=== PATIENT | female | born 1990 | race Caucasian/White ===

== ENCOUNTER 2017-10-03 07:00 | Inpatient (IN) | payer BC ==
[2017-10-03] MEDS ORDERED: Ondansetron 4 MG/2 ML SDV IVPUSH PRN ×2 (07:24→08:43)
[2017-10-03] MEDS ORDERED: Sodium Chloride 0.9% 10 ML Syringe FLUSH PRN (07:24)
[2017-10-03] MEDS ORDERED: Nalbuphine 20 MG/1 ML Amp IVPUSH PRN (07:24)
[2017-10-03] MEDS ORDERED: Oxytocin/Lactated Ringers 10 UNIT/1,000 ML BAG IV SCH (07:30)
--- NOTE | 2017-10-03 07:30 | PCM.LDHP ---
L&D History of Present Illness - General Date of Service: 10/03/17 Admit Problem/Dx: Patient Status Order with Admit Dx/Problem 10/03/17 07:24 Patient Status [ADT] Routine Admission Diagnosis/Problem Admission Diagnosis/Problem Normal Source of Information: Patient History Limitations: Reports: No Limitations - History of Present Illness Introduction:: Patient is a 27 y/o at 40 5/7 wks who presents for IOL for dates - Related Data Allergies/Adverse Reactions: Allergies Allergy/AdvReac Type Severity Reaction Status Date / Time No Known Allergies Allergy Verified 12/30/14 18:09 Home Medications: Home Meds Vit 90/Iron Fum/Folic [ Formula] 1 tab .ROUTE DAILY 12/30/14 [ History] Acetaminophen [Tylenol] 650 mg PO Q6H PRN #50 tablet 01/02/15 [Rx] Benzocaine/Menthol [Dermoplast Pain Relief [place]] 1 spray TOP ASDIRECTED PRN #1 canister 01/02/15 [Rx] Docusate Sodium [Colace] 100 mg PO BID PRN #50 cap 01/02/15 [Rx] Ibuprofen [Motrin] 200 - 800 mg PO Q6H PRN #50 tablet 01/02/15 [Rx] Lanolin [Lansinoh HPA] 1 applic TOP ASDIRECTED PRN #1 crm 01/02/15 [Rx] Simethicone 80 mg PO Q4H PRN #50 tab.chew 01/02/15 [Rx] Witch Randi [Tucks] 1 pad TOP ASDIRECTED PRN #50 pad 01/02/15 [Rx] Past Medical History - Past Health History Medical/Surgical History: Denies 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: 1 LMP (Approximate): Social & Family History - Tobacco Use Smoking Status *Q: Former Smoker Second Hand Smoke Exposure: No - Alcohol Use Alcohol Use History: No - Recreational Drug Use Recreational Drug Use: No H&P Review of Systems - Review of Systems: Review Of Systems: See Below General: Reports: No Symptoms Pulmonary: Reports: No Symptoms Cardiovascular: Reports: No Symptoms Gastrointestinal: Reports: No Symptoms Genitourinary: Reports: No Symptoms Musculoskeletal: Reports: No Symptoms Neurological: Reports: No Symptoms L&D Exam - Exam Exam: See Below - OB Specific Contraction Intensity: Irritability Movement: Active Heart Tones: Present Heart Tones per Min: 135 Heart Rate (FHR) Variability: Moderate (6-25 bmp) Presentation: Vertex - Dale Score Dale Score Cervix Position: Midposition Dale Score Consistency: Soft Dale Score Effacement: 51-70% Dale Score Dilation: 3-4 cm Dale Score 's Station: -2 Dale Score Total: 8 - Exam General: Alert, Oriented, Cooperative Lungs: Clear to Auscultation, Normal Respiratory Effort Cardiovascular: Regular Rate, Regular Rhythm GI/Abdominal Exam: Soft, Non-Tender Genitourinary: Normal external exam Extremities: Normal Inspection Skin: Warm, Dry, Intact - Patient Data Result Diagrams: 10/03/17 07:30 - Problem List (1) Post term over 40 weeks SNOMED Code(s): 953847163 ICD Code: O48.0 - POST-TERM Status: Acute Current Visit: Yes Problem List Initiated/Reviewed/Updated: Yes Orders Last 24hrs: Active Orders 24 hr Category Date Time Status Patient Status [ADT] Routine ADT 10/03/17 07:24 Ordered Activity as Tolerated [RC] PFP Care 10/03/17 07:24 Ordered Communication Order [RC] ASDIRECTED Care 10/03/17 07:24 Ordered Heart Tones [RC] ASDIRECTED Care 10/03/17 07:24 Ordered Notify Provider [RC] PFP Care 10/03/17 07:24 Ordered Notify Provider [RC] PRN Care 10/03/17 07:24 Ordered Peripheral IV Care [RC] . DIRECTED Care 10/03/17 07:24 Ordered Vital Signs [RC] PER UNIT ROUTINE Care 10/03/17 07:24 Ordered Regular Diet [DIET] Diet 10/03/17 Breakfast Ordered CBC W/O DIFF,HEMOGRAM [HEME] Routine Lab 10/03/17 07:24 Ordered TYPE AND SCREEN [BBK] Routine Lab 10/03/17 07:24 Ordered Lactated Ringers [Ringers, Lactated] 1,000 ml Med 10/03/17 07:30 Ordered IV ASDIRECTED Nalbuphine [Nubain] Med 10/03/17 07:24 Ordered 10 mg IVPUSH Q2H PRN Ondansetron [Zofran] Med 04/21/18 07:24 Ordered 4 mg IVPUSH Q4H PRN Oxytocin/Lactated Ringers [Pitocin in LR 10 Units/1,000 Med 10/03/17 07:30 Ordered ML] 10 unit in 1,000 ml IV .CONTINUOUS Sodium Chloride 0.9% [Saline Flush] Med 10/03/17 07:24 Ordered 10 ml FLUSH ASDIRECTED PRN Electronic Heart Tones Ext w TOCO [WOMSER] Oth 10/03/17 07:24 Ordered Routine Electronic Heart Tones Internal [WOMSER] Per Unit Ot 10/03/17 07:24 Ordered Routine Peripheral IV Insertion Adult [OM.PC] Routine Oth 10/03/17 07:24 Ordered Resuscitation Status Routine Resus Stat 10/03/17 07:24 Ordered Medication Orders Lactated Ringer's (Ringers, Lactated) 1,000 mls @ 100 mls/hr IV ASDIRECTED MAIA Oxytocin/Lactated Ringer's (Pitocin In Lr 10 Units/1,000 Ml) 10 unit in 1,000 mls @ 500 mls/hr IV .CONTINUOUS MAIA Nalbuphine HCl (Nubain) 10 mg IVPUSH Q2H PRN PRN Reason: Pain (moderate 4-6) Ondansetron HCl (Zofran) 4 mg IVPUSH Q4H PRN PRN Reason: Nausea/Vomiting Sodium Chloride (Saline Flush) 10 ml FLUSH ASDIRECTED PRN PRN Reason: Keep Vein Open Assessment/Plan Comment:: 27 y/o at 40 5/7 wks presents for IOL for dates * CBC and T&S * GBS negative, no need for antibiotics * Pain management per patient preference * Anticipate
[2017-10-03] MEDS ORDERED: ePHEDrine 50 MG/ML SDV IVPUSH PRN (08:43)
[2017-10-03] MEDS ORDERED: diphenhydrAMINE 50 MG/ML SDV IVPUSH PRN (08:43)
[2017-10-03] MEDS ORDERED: fentaNYL 100 MCG/2 ML SDV EPIDUR PRN (08:43)
[2017-10-03] MEDS ORDERED: Bupivacaine/fentaNYL/NS 100 ML Bag EPIDUR SCH (08:45)
[2017-10-03] MEDS: Lactated Ringers 1,000 ML IV SCH ×2 (08:55→10:00)
[2017-10-03] MEDS ORDERED: Bupivacaine 0.25% 10 ML SDV ONE (09:00)
--- NOTE | 2017-10-03 09:54 | PCM.PREANE ---
Preanesthetic Assessment - Anesthesia/Transfusion/Family Hx Anesthesia History: Prior Anesthesia Without Reaction Family History of Anesthesia Reaction: No Transfusion History: No Prior Transfusion(s) - Review of Systems General: No Symptoms Pulmonary: No Symptoms Cardiovascular: No Symptoms Gastrointestinal: No Symptoms Neurological: No Symptoms Other: Reports: None - Physical Assessment Pulse: 31 O2 Sat by Pulse Oximetry: 85 Respiratory Rate: 16 Blood Pressure: 132/79 Vital Signs: Last Vital Signs Temp 37.2 C 10/03/17 08:43 Pulse 102 H 10/03/17 08:43 Resp 16 10/03/17 08:43 BP 132/79 10/03/17 07:21 Pulse Ox 85 L 10/03/17 07:21 Height: 1.63 m Weight: 83.28 kg ASA Class: 2 Mental Status: Alert & Oriented x3 Airway Class: Mallampati = 1 Dentition: Reports: Normal Dentition Thyro-Mental Finger Breadths: 3 Mouth Opening Finger Breadths: 3 ROM/Head Extension: Full Lungs: Clear to Auscultation, Normal Respiratory Effort Cardiovascular: Regular Rate, Regular Rhythm - Lab Values: Laboratory Last Values WBC 13.01 K/mm3 (3.98-10.04) H 10/03/17 07:30 RBC 3.90 M/mm3 (3.98-5.22) L 10/03/17 07:30 Hgb 10.1 gm/L (11.2-15.7) L 10/03/17 07:30 Hct 32.5 % (34.1-44.9) L 10/03/17 07:30 MCV 83.3 fl (79.4-94.8) 10/03/17 07:30 MCH 25.9 pg (25.6-32.2) 10/03/17 07:30 MCHC 31.1 g/dl (32.2-35.5) L 10/03/17 07:30 RDW Std Deviation 41.5 fL (36.4-46.3) 10/03/17 07:30 Plt Count 213 K/mm3 (182-369) 10/03/17 07:30 MPV 13.1 fl (9.4-12.3) H 10/03/17 07:30 Blood Type A POSITIVE 10/03/17 07:30 Gel Antibody Screen Negative 10/03/17 07:30 - Allergies Allergies/Adverse Reactions: Allergies Allergy/AdvReac Type Severity Reaction Status Date / Time No Known Allergies Allergy Verified 12/30/14 18:09 - Acknowledgements Anesthesia Type Planned: Epidural Pt an Appropriate Candidate for the Planned Anesthesia: Yes Alternatives and Risks of Anesthesia Discussed w Pt/Guardian: Yes Pt/Guardian Understands and Agrees with Anesthesia Plan: Yes PreAnesthesia Questionnaire - Past Health History Medical/Surgical History: Denies Medical/Surgical History 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 Dermatologic History: pups syndrome during - SUBSTANCE USE Smoking Status *Q: Former Smoker Tobacco Use Within Last Twelve Months: No Second Hand Smoke Exposure: No Recreational Drug Use History: No - HOME MEDS Home Medications: Home Meds Vit 90/Iron Fum/Folic [ Formula] 1 tab .ROUTE DAILY 12/30/14 [ History] Acetaminophen [Tylenol] 650 mg PO Q6H PRN #50 tablet 01/02/15 [Rx] Benzocaine/Menthol [Dermoplast Pain Relief [place]] 1 spray TOP ASDIRECTED PRN #1 canister 01/02/15 [Rx] Docusate Sodium [Colace] 100 mg PO BID PRN #50 cap 01/02/15 [Rx] Ibuprofen [Motrin] 200 - 800 mg PO Q6H PRN #50 tablet 01/02/15 [Rx] Lanolin [Lansinoh HPA] 1 applic TOP ASDIRECTED PRN #1 crm 01/02/15 [Rx] Simethicone 80 mg PO Q4H PRN #50 tab.chew 01/02/15 [Rx] Witch Randi [Tucks] 1 pad TOP ASDIRECTED PRN #50 pad 01/02/15 [Rx] - CURRENT (IN HOUSE) MEDS Current Meds: Current Medications Diphenhydramine HCl (Benadryl) 25 mg IVPUSH Q6H PRN PRN Reason: Pruritis Ephedrine Sulfate (Ephedrine Sulfate) 5 mg IVPUSH ASDIRECTED PRN PRN Reason: Hypotension Fentanyl (Sublimaze) 100 mcg EPIDUR ONETIME PRN PRN Reason: Pain Fentanyl/Bupivacaine HCl (Fentanyl/Bupivacaine/Ns 2 Mcg-0.125% 100 Ml) 100 ml EPIDUR ASDIRECTED MAIA Lactated Ringer's (Ringers, Lactated) 1,000 mls @ 100 mls/hr IV ASDIRECTED MAIA Last Admin: 10/03/17 08:55 Dose: 100 mls/hr Oxytocin/Lactated Ringer's (Pitocin In Lr 10 Units/1,000 Ml) 10 unit in 1,000 mls @ 500 mls/hr IV .CONTINUOUS MAIA Nalbuphine HCl (Nubain) 10 mg IVPUSH Q2H PRN PRN Reason: Pain (moderate 4-6) Ondansetron HCl (Zofran) 4 mg IVPUSH Q4H PRN PRN Reason: Nausea/Vomiting Ondansetron HCl (Zofran) 4 mg IVPUSH ONETIME PRN PRN Reason: Nausea/Vomiting Sodium Chloride (Saline Flush) 10 ml FLUSH ASDIRECTED PRN PRN Reason: Keep Vein Open
--- NOTE | 2017-10-03 10:50 | PCM.DEL ---
L & D Note - General Info Date of Service: 10/03/17 - Delivery Note Labor: Induced by ARM Delivery Outcome: Livebirth Infant Delivery Method: Spontaneous Vaginal Delivery-Single Infant Delivery Mode: Spontaneous Presentation: Right Occiput Anterior (SHAYAN) Nuchal Cord: Present, Reduced Anesthesia Type: Epidural Amniotic Fluid Description: Clear Episiotomy Type: None Laceration: 1st Degree Suture type: Vicryl Suture size: 2-0 Placenta: Intact, Spontaneous Cord: 3 Vessels Estimated Blood Loss: 250 Resuscitation Needed: Yes : Bulb Syringe, Stimulated, Warmed, [place] Used Delivery Comments (Free Text/Narrative):: Patient found to be complete and began pushing. With maternal pushing effort head delivered from SHAYAN presentation. Tight nuchal cord present. Once this was able to be reduced the shoulders/body did deliver with gentle downward traction. Infant placed on maternal abdomen. Cord clamped and cut. Cord blood obtained. Placenta allowed time to separate and expelled intact. Inspection of perineum showed a 1st degree laceration which was slightly bleeding. This was repaired with a single interrupted suture of 2-0 vicryl placed in a figure of eight fashion - Patient Data Vitals - Most Recent: Last Vital Signs Temp 37.2 C 10/03/17 08:43 Pulse 31 L 10/03/17 09:54 Resp 16 10/03/17 09:54 BP 132/79 10/03/17 09:54 Pulse Ox 85 L 10/03/17 09:54 Weight - Most Recent: 83.28 kg Lab Results Last 24 Hours: Laboratory Results - last 24 hr 10/03/17 10/03/17 Range/Units 07:30 07:30 WBC 13.01 H (3.98-10.04) K/mm3 RBC 3.90 L (3.98-5.22) M/mm3 Hgb 10.1 L (11.2-15.7) gm/L Hct 32.5 L (34.1-44.9) % MCV 83.3 (79.4-94.8) fl MCH 25.9 (25.6-32.2) pg MCHC 31.1 L (32.2-35.5) g/dl RDW Std Deviation 41.5 (36.4-46.3) fL Plt Count 213 (182-369) K/mm3 MPV 13.1 H (9.4-12.3) fl Blood Type A POSITIVE Gel Antibody Screen Negative Med Orders - Current: Current Medications Diphenhydramine HCl (Benadryl) 25 mg IVPUSH Q6H PRN PRN Reason: Pruritis Ephedrine Sulfate (Ephedrine Sulfate) 5 mg IVPUSH ASDIRECTED PRN PRN Reason: Hypotension Fentanyl (Sublimaze) 100 mcg EPIDUR ONETIME PRN PRN Reason: Pain Last Admin: 10/03/17 09:57 Dose: 100 mcg Fentanyl/Bupivacaine HCl (Fentanyl/Bupivacaine/Ns 2 Mcg-0.125% 100 Ml) 100 ml EPIDUR ASDIRECTED MAIA Last Admin: 10/03/17 09:57 Dose: 100 ml Lactated Ringer's (Ringers, Lactated) 1,000 mls @ 100 mls/hr IV ASDIRECTED MAIA Last Admin: 10/03/17 10:00 Dose: 500 mls/hr Oxytocin/Lactated Ringer's (Pitocin In Lr 10 Units/1,000 Ml) 10 unit in 1,000 mls @ 500 mls/hr IV .CONTINUOUS MAIA Last Admin: 10/03/17 10:00 Dose: 500 mls/hr Nalbuphine HCl (Nubain) 10 mg IVPUSH Q2H PRN PRN Reason: Pain (moderate 4-6) Ondansetron HCl (Zofran) 4 mg IVPUSH Q4H PRN PRN Reason: Nausea/Vomiting Ondansetron HCl (Zofran) 4 mg IVPUSH ONETIME PRN PRN Reason: Nausea/Vomiting Sodium Chloride (Saline Flush) 10 ml FLUSH ASDIRECTED PRN PRN Reason: Keep Vein Open - Problem List & Annotations (1) Post term over 40 weeks SNOMED Code(s): 480933388 Code(s): O48.0 - POST-TERM Status: Acute Current Visit: Yes (2) Vaginal delivery SNOMED Code(s): 385675842 Code(s): O80 - ENCOUNTER FOR FULL-TERM UNCOMPLICATED DELIVERY Status: Acute Current Visit: Yes (3) Precipitate labor, delivered, current hospitalization SNOMED Code(s): 474975717 Code(s): O62.3 - PRECIPITATE LABOR Status: Acute Current Visit: Yes - Problem List Review Problem List Initiated/Reviewed/Updated: Yes - My Orders Last 24 Hours: My Active Orders 10/03/17 07:24 Patient Status [ADT] Routine Activity as Tolerated [RC] PFP Communication Order [RC] ASDIRECTED Heart Tones [RC] ASDIRECTED Notify Provider [RC] PFP Notify Provider [RC] PRN Peripheral IV Care [RC] . DIRECTED Vital Signs [RC] PER UNIT ROUTINE Nalbuphine [Nubain] 10 mg IVPUSH Q2H PRN Ondansetron [Zofran] 4 mg IVPUSH Q4H PRN Sodium Chloride 0.9% [Saline Flush] 10 ml FLUSH ASDIRECTED PRN Electronic Heart Tones Ext w TOCO [WOMSER] Routine Electronic Heart Tones Internal [WOMSER] Per Unit Routine Peripheral IV Insertion Adult [OM.PC] Routine Resuscitation Status Routine 10/03/17 07:30 PATIENT RETYPE [BBK] Routine TYPE AND SCREEN [BBK] Routine Lactated Ringers [Ringers, Lactated] 1,000 ml IV ASDIRECTED Oxytocin/Lactated Ringers [Pitocin in LR 10 Units/1,000 ML] 10 unit in 1,000 ml IV .CONTINUOUS 10/03/17 Breakfast Regular Diet [DIET] - Assessment Assessment:: 27 y/o G2 now P2002 PPD#0 from at 40 5/7 wks - Plan Plan:: * Routine cares * Encourage breast feeding * Discharge home in 1-2 days
[2017-10-03] MEDS ORDERED: Docusate Sodium 100 MG Cap PO PRN (10:59)
[2017-10-03] MEDS ORDERED: Acetaminophen 325 MG Tab PO PRN (10:59)
[2017-10-03] MEDS ORDERED: Ibuprofen 600 MG Tab PO PRN (10:59)
[2017-10-03] MEDS ORDERED: Lanolin 100% Cream 7 GM Tube TOP PRN (10:59)
[2017-10-03] MEDS: Witch Hazel Medicated Pads 100/Jar TOP PRN ×2 (12:36→13:07)
[2017-10-03] MEDS: Benzocaine/Menthol 20%-0.5% Spray 56 GM Canister TOP PRN ×2 (12:37→13:08)
[2017-10-04 04:53] VITALS: BP 109/57
--- NOTE | 2017-10-04 07:14 | PCM.PNPP ---
- General Info Date of Service: 10/04/17 Functional Status: Reports: Pain Controlled, Tolerating Diet, Ambulating, Urinating - Review of Systems General: Reports: No Symptoms Pulmonary: Reports: No Symptoms Cardiovascular: Reports: No Symptoms Gastrointestinal: Reports: No Symptoms Genitourinary: Reports: No Symptoms Musculoskeletal: Reports: No Symptoms Neurological: Reports: No Symptoms - Patient Data Vital Signs - Most Recent: Last Vital Signs Temp 36.6 C 10/04/17 03:58 Pulse 71 10/04/17 03:58 Resp 16 10/04/17 03:58 BP 109/57 L 10/04/17 03:58 Pulse Ox 98 10/04/17 03:58 Weight - Most Recent: 83.28 kg I&O - Last 24 Hours: Intake & Output 10/03/17 10/04/17 10/04/17 22:59 06:59 14:59 Intake Total 320 Balance 320 Lab Results - Last 24 Hours: Laboratory Results - last 24 hr 10/03/17 10/03/17 Range/Units 07:30 07:30 WBC 13.01 H (3.98-10.04) K/mm3 RBC 3.90 L (3.98-5.22) M/mm3 Hgb 10.1 L (11.2-15.7) gm/L Hct 32.5 L (34.1-44.9) % MCV 83.3 (79.4-94.8) fl MCH 25.9 (25.6-32.2) pg MCHC 31.1 L (32.2-35.5) g/dl RDW Std Deviation 41.5 (36.4-46.3) fL Plt Count 213 (182-369) K/mm3 MPV 13.1 H (9.4-12.3) fl Blood Type A POSITIVE Gel Antibody Screen Negative Med Orders - Current: Current Medications Acetaminophen (Tylenol) 650 mg PO Q4H PRN PRN Reason: mild pain or fever Benzocaine/Menthol (Dermoplast Pain Relief [place]) 0 gm TOP ASDIRECTED PRN PRN Reason: Perineal Comfort Measure Last Admin: 10/03/17 13:08 Dose: 1 applic Docusate Sodium (Colace) 100 mg PO BID PRN PRN Reason: Constipation Emollient Ointment (Lansinoh Hpa) 0 gm TOP ASDIRECTED PRN PRN Reason: Sore Nipples Ibuprofen (Motrin) 600 mg PO Q6H PRN PRN Reason: Mild pain or fever Witch Randi (Tucks) 1 pad TOP ASDIRECTED PRN PRN Reason: Hemorrhoid pain Last Admin: 10/03/17 13:07 Dose: 1 applic Discontinued Medications Diphenhydramine HCl (Benadryl) 25 mg IVPUSH Q6H PRN PRN Reason: Pruritis Ephedrine Sulfate (Ephedrine Sulfate) 5 mg IVPUSH ASDIRECTED PRN PRN Reason: Hypotension Fentanyl (Sublimaze) 100 mcg EPIDUR ONETIME PRN PRN Reason: Pain Last Admin: 10/03/17 09:57 Dose: 100 mcg Fentanyl/Bupivacaine HCl (Fentanyl/Bupivacaine/Ns 2 Mcg-0.125% 100 Ml) 100 ml EPIDUR ASDIRECTED MAIA Last Admin: 10/03/17 09:57 Dose: 100 ml Lactated Ringer's (Ringers, Lactated) 1,000 mls @ 100 mls/hr IV ASDIRECTED MAIA Last Admin: 10/03/17 10:00 Dose: 500 mls/hr Oxytocin/Lactated Ringer's (Pitocin In Lr 10 Units/1,000 Ml) 10 unit in 1,000 mls @ 500 mls/hr IV .CONTINUOUS MAIA Last Admin: 10/03/17 10:00 Dose: 500 mls/hr Nalbuphine HCl (Nubain) 10 mg IVPUSH Q2H PRN PRN Reason: Pain (moderate 4-6) Ondansetron HCl (Zofran) 4 mg IVPUSH Q4H PRN PRN Reason: Nausea/Vomiting Ondansetron HCl (Zofran) 4 mg IVPUSH ONETIME PRN PRN Reason: Nausea/Vomiting Sodium Chloride (Saline Flush) 10 ml FLUSH ASDIRECTED PRN PRN Reason: Keep Vein Open - Infant Interaction Infant Disposition, : [place] in Room with Family Interaction: Holding Feeding: Breastfed Infant; Nursed Well Support Person: - Recovery Exam Fundal Tone: Firm Fundal Level: 2 Fingerbreadths Below Umbilicus Fundal Placement: Midline Lochia Amount: Small Lochia Color: Rubra/Red Perineum Description: Edematous Other Perinuem Description: 1st degree with repair Episiotomy/Laceration: Approximated Bladder Status: Nonpalpable Urinary Elimination: Voided - Exam General: Alert, Oriented, Cooperative GI/Abdominal Exam: Soft, Non-Tender Extremities: Normal Inspection Skin: Warm, Dry, Intact - Problem List & Annotations (1) Post term over 40 weeks SNOMED Code(s): 717295796 Code(s): O48.0 - POST-TERM Status: Acute Current Visit: Yes (2) Vaginal delivery SNOMED Code(s): 771460605 Code(s): O80 - ENCOUNTER FOR FULL-TERM UNCOMPLICATED DELIVERY Status: Acute Current Visit: Yes (3) Precipitate labor, delivered, current hospitalization SNOMED Code(s): 971029459 Code(s): O62.3 - PRECIPITATE LABOR Status: Acute Current Visit: Yes - Problem List Review Problem List Initiated/Reviewed/Updated: Yes - My Orders Last 24 Hours: My Active Orders 10/03/17 07:24 Heart Tones [RC] ASDIRECTED Peripheral IV Care [RC] . DIRECTED Resuscitation Status Routine 10/03/17 10:59 Activity as Tolerated [RC] PER UNIT ROUTINE Up ad Katerine [RC] ASDIRECTED Vital Signs [RC] 04,12,20 Acetaminophen [Tylenol] 650 mg PO Q4H PRN Benzocaine/Menthol [Dermoplast Pain Relief [place]] See Dose Instructions TOP ASDIRECTED PRN Docusate Sodium [Colace] 100 mg PO BID PRN Ibuprofen [Motrin] 600 mg PO Q6H PRN Lanolin [Lansinoh HPA] See Dose Instructions TOP ASDIRECTED PRN Witch Randi [Tucks] 1 pad TOP ASDIRECTED PRN Assess Lochia [WOMSER] Per Unit Routine Assess Uterine Involution [WOMSER] Per Unit Routine Breast Pump [WOMSER] Per Unit Routine Ice Therapy [OM.PC] Per Unit Routine Perineal Care [OM.PC] Per Unit Routine Peripheral IV Discontinue [OM.PC] Routine Sitz Bath [OM.PC] Per Unit Routine 10/03/17 11:00 Heat Therapy [OM.PC] PRN 10/03/17 Lunch Regular Diet [DIET] 10/04/17 11:00 Heat Therapy [OM.PC] PRN - Assessment Assessment:: 27 y/o G2 now P2002 PPD#1 from at 40 5/7 wks - Plan Plan:: * Routine cares * Encourage breast feeding * Discharge home today
--- NOTE | 2017-10-04 07:14 | PCM.DCSUM1 ---
Discharge Summary - Discharge Data Discharge Date: 10/04/17 Discharge Disposition: Home, Self-Care 01 Condition: Good - Discharge Diagnosis/Problem(s) (1) Post term over 40 weeks SNOMED Code(s): 444429459 ICD Code: O48.0 - POST-TERM Status: Acute Current Visit: Yes (2) Vaginal delivery SNOMED Code(s): 658349198 ICD Code: O80 - ENCOUNTER FOR FULL-TERM UNCOMPLICATED DELIVERY Status: Acute Current Visit: Yes (3) Precipitate labor, delivered, current hospitalization SNOMED Code(s): 857081378 ICD Code: O62.3 - PRECIPITATE LABOR Status: Acute Current Visit: Yes - Patient Summary/Data Complications: None Consults: None Recommended Follow-up Testing/Procedures: Follow up in 3-6 weeks for check Hospital Course: 27 y/o at 40 5/7 wks presented for IOL for dates. This was done with AROM alone. She progressed well to complete dilation. Underwent an uncomplicated . See delivery note. she did well and was discharged home on PPD#1 - Patient Instructions Diet: Regular Diet as Tolerated Activity: As Tolerated Activity, Other: Pelvic Rest for 6 weeks Driving: May Drive Today Showering/Bathing: May Shower Showering/Bathing, Other: May bathe Notify Provider of: Fever, Increased Pain, Swelling and Redness, Drainage, Nausea and/or Vomiting - Discharge Plan Home Medications: Home Meds Vit 90/Iron Fum/Folic [ Formula] 1 tab .ROUTE DAILY 12/30/14 [ History] Docusate Sodium [Colace] 100 mg PO BID PRN cap 10/03/17 [Rx] Ibuprofen [IJD: Ibuprofen] 600 mg PO Q6H PRN tablet 10/03/17 [Rx] Referrals: Zoraida Murray MD [Primary Care Provider] - (3-6 weeks for check ) - Discharge Summary/Plan Comment DC Time >30 min.: No - Patient Data Vitals - Most Recent: Last Vital Signs Temp 36.6 C 10/04/17 03:58 Pulse 71 10/04/17 03:58 Resp 16 10/04/17 03:58 BP 109/57 L 10/04/17 03:58 Pulse Ox 98 10/04/17 03:58 Weight - Most Recent: 83.28 kg I&O - Last 24 hours: Intake & Output 10/03/17 10/04/17 10/04/17 22:59 06:59 14:59 Intake Total 320 Balance 320 Lab Results - Last 24 hrs: Laboratory Results - last 24 hr 10/03/17 10/03/17 Range/Units 07:30 07:30 WBC 13.01 H (3.98-10.04) K/mm3 RBC 3.90 L (3.98-5.22) M/mm3 Hgb 10.1 L (11.2-15.7) gm/L Hct 32.5 L (34.1-44.9) % MCV 83.3 (79.4-94.8) fl MCH 25.9 (25.6-32.2) pg MCHC 31.1 L (32.2-35.5) g/dl RDW Std Deviation 41.5 (36.4-46.3) fL Plt Count 213 (182-369) K/mm3 MPV 13.1 H (9.4-12.3) fl Blood Type A POSITIVE Gel Antibody Screen Negative Med Orders - Current: Current Medications Acetaminophen (Tylenol) 650 mg PO Q4H PRN PRN Reason: mild pain or fever Benzocaine/Menthol (Dermoplast Pain Relief [place]) 0 gm TOP ASDIRECTED PRN PRN Reason: Perineal Comfort Measure Last Admin: 10/03/17 13:08 Dose: 1 applic Docusate Sodium (Colace) 100 mg PO BID PRN PRN Reason: Constipation Emollient Ointment (Lansinoh Hpa) 0 gm TOP ASDIRECTED PRN PRN Reason: Sore Nipples Ibuprofen (Motrin) 600 mg PO Q6H PRN PRN Reason: Mild pain or fever Witch Randi (Tucks) 1 pad TOP ASDIRECTED PRN PRN Reason: Hemorrhoid pain Last Admin: 10/03/17 13:07 Dose: 1 applic Discontinued Medications Diphenhydramine HCl (Benadryl) 25 mg IVPUSH Q6H PRN PRN Reason: Pruritis Ephedrine Sulfate (Ephedrine Sulfate) 5 mg IVPUSH ASDIRECTED PRN PRN Reason: Hypotension Fentanyl (Sublimaze) 100 mcg EPIDUR ONETIME PRN PRN Reason: Pain Last Admin: 04/21/18 09:57 Dose: 100 mcg Fentanyl/Bupivacaine HCl (Fentanyl/Bupivacaine/Ns 2 Mcg-0.125% 100 Ml) 100 ml EPIDUR ASDIRECTED [facility] Last Admin: 10/03/17 09:57 Dose: 100 ml Lactated Ringer's (Ringers, Lactated) 1,000 mls @ 100 mls/hr IV ASDIRECTED [facility] Last Admin: 10/03/17 10:00 Dose: 500 mls/hr Oxytocin/Lactated Ringer's (Pitocin In Lr 10 Units/1,000 Ml) 10 unit in 1,000 mls @ 500 mls/hr IV .CONTINUOUS [facility] Last Admin: 10/03/17 10:00 Dose: 500 mls/hr Nalbuphine HCl (Nubain) 10 mg IVPUSH Q2H PRN PRN Reason: Pain (moderate 4-6) Ondansetron HCl (Zofran) 4 mg IVPUSH Q4H PRN PRN Reason: Nausea/Vomiting Ondansetron HCl (Zofran) 4 mg IVPUSH ONETIME PRN PRN Reason: Nausea/Vomiting Sodium Chloride (Saline Flush) 10 ml FLUSH ASDIRECTED PRN PRN Reason: Keep Vein Open
== END 2017-10-04 11:30 | disposition home or self-care (01) | DRG 560 ==
LOC: JD.OB 07:00 → OBSVTOIN 10:28 → JD.OB 10:28
PROVIDERS: ADMIT Obstetrics & Gynecology; ATTEND Obstetrics & Gynecology
PROC: 10E0XZZ Delivery of Products of Conception, External Approach (ICD-10-PCS; principal; 2017-10-03)
PROC: 10907ZC Drainage of Amniotic Fluid, Therapeutic from Products of Conception, Via Natural or Artificial Opening (ICD-10-PCS; 2017-10-03)
PROC: 0HQ9XZZ Repair Perineum Skin, External Approach (ICD-10-PCS; 2017-10-03)
PROC: 6A550ZT Pheresis of Cord Blood Stem Cells, Single (ICD-10-PCS; 2017-10-03)
PROC: 00HU33Z Insertion of Infusion Device into Spinal Canal, Percutaneous Approach (ICD-10-PCS; 2017-10-03)
PROC: 3E0R3BZ Introduction of Anesthetic Agent into Spinal Canal, Percutaneous Approach (ICD-10-PCS; 2017-10-03)
DX: O48.0 Post-term pregnancy (principal); Z3A.40 40 weeks gestation of pregnancy; O69.1XX0 Labor and delivery complicated by cord around neck, with compression, not applicable or unspecified; O70.0 First degree perineal laceration during delivery; O62.3 Precipitate labor; Z37.0 Single live birth; O75.89 Other specified complications of labor and delivery; H54.7 Unspecified visual loss; Z87.891 Personal history of nicotine dependence
CPT/HCPCS: 36415; 51701; 59025; 59300; 59409; 85027; 86850; 86900; 86901; A9270-GY; J2590; J3010; J7120

== ENCOUNTER 2021-03-31 00:16 | Inpatient (IN) | payer BC ==
[2021-03-31] MEDS ORDERED: Ondansetron 4 MG/2 ML SDV IVPUSH PRN (00:40)
[2021-03-31] MEDS ORDERED: Acetaminophen 325 MG Tab PO PRN ×2 (00:40→05:26)
[2021-03-31] MEDS ORDERED: Sodium Chloride 0.9% 10 ML Syringe FLUSH PRN (00:40)
[2021-03-31] MEDS ORDERED: Nalbuphine 10 MG/1 ML Vial IVPUSH PRN (00:40)
[2021-03-31] MEDS ORDERED: Oxytocin/Lactated Ringers 10 UNIT/1,000 ML BAG IV SCH ×3 (00:45→05:26)
[2021-03-31] MEDS: Lactated Ringers 1,000 ML IV SCH ×3 (00:50→02:23)
[2021-03-31] MEDS ORDERED: Bupivacaine/fentaNYL/NS 100 ML Bag EPIDUR PRN (00:59)
[2021-03-31] MEDS ORDERED: fentaNYL 100 MCG/2 ML SDV EPIDUR PRN (00:59)
[2021-03-31] MEDS ORDERED: ePHEDrine 50 MG/ML SDV IVPUSH PRN (00:59)
[2021-03-31] MEDS ORDERED: diphenhydrAMINE 50 MG/ML SDV IVPUSH PRN (00:59)
--- NOTE | 2021-03-31 01:32 | PCM.PREANE ---
Preanesthetic Assessment - Procedure Proposed Procedure: yoel - Anesthesia/Transfusion/Family Hx Anesthesia History: Prior Anesthesia Without Reaction Family History of Anesthesia Reaction: No Transfusion History: No Prior Transfusion(s) - Review of Systems General: No Symptoms Pulmonary: No Symptoms Cardiovascular: No Symptoms Gastrointestinal: No Symptoms Neurological: No Symptoms Other: Reports: None - Physical Assessment Vital Signs: Last Vital Signs Temp 98.1 F 03/31/21 00:40 Pulse 99 03/31/21 00:40 Resp 18 03/31/21 00:40 BP 140/85 03/31/21 00:40 Pulse Ox 96 03/31/21 00:40 Height: 5 ft 3 in Weight: 90.265 kg ASA Class: 2 Mental Status: Alert & Oriented x3 Airway Class: Mallampati = 2 Dentition: Reports: Normal Dentition Thyro-Mental Finger Breadths: 3 Mouth Opening Finger Breadths: 3 ROM/Head Extension: Full Lungs: Clear to Auscultation, Normal Respiratory Effort Cardiovascular: Regular Rate, Regular Rhythm - Lab Values: Laboratory Last Values WBC 11.47 K/mm3 (3.98-10.04) H 03/31/21 00:50 RBC 4.11 M/mm3 (3.98-5.22) 03/31/21 00:50 Hgb 11.1 gm/dl (11.2-15.7) L 03/31/21 00:50 Hct 35.0 % (34.1-44.9) 03/31/21 00:50 MCV 85.2 fl (79.4-94.8) 03/31/21 00:50 MCH 27.0 pg (25.6-32.2) 03/31/21 00:50 MCHC 31.7 g/dl (32.2-35.5) L 03/31/21 00:50 RDW Std Deviation 44.5 fL (36.4-46.3) 03/31/21 00:50 Plt Count 207 K/mm3 (182-369) 03/31/21 00:50 MPV 12.0 fl (9.4-12.3) 03/31/21 00:50 Neut % (Auto) 66.7 % (34.0-71.1) 03/31/21 00:50 Lymph % (Auto) 21.4 % (19.3-51.7) 03/31/21 00:50 [place] % (Auto) 8.3 % (4.7-12.5) 03/31/21 00:50 Eos % (Auto) 1.3 (0.7-5.8) 03/31/21 00:50 Baso % (Auto) 0.3 % (0.1-1.2) 03/31/21 00:50 Neut # (Auto) 7.65 K/mm3 (1.56-6.13) H 03/31/21 00:50 Lymph # (Auto) 2.46 K/mm3 (1.18-3.74) 03/31/21 00:50 [place] # (Auto) 0.95 K/mm3 (0.24-0.36) H 03/31/21 00:50 Eos # (Auto) 0.15 K/mm3 (0.04-0.36) 03/31/21 00:50 Baso # (Auto) 0.03 K/mm3 (0.01-0.08) 03/31/21 00:50 - Allergies Allergies/Adverse Reactions: Allergies Allergy/AdvReac Type Severity Reaction Status Date / Time No Known Allergies Allergy Verified 03/31/21 00:58 - Blood Blood Available: No - Acknowledgements Anesthesia Type Planned: Epidural Pt an Appropriate Candidate for the Planned Anesthesia: Yes Alternatives and Risks of Anesthesia Discussed w Pt/Guardian: Yes Pt/Guardian Understands and Agrees with Anesthesia Plan: Yes PreAnesthesia Questionnaire - Past Health History Medical/Surgical History: Denies Medical/Surgical History HEENT History: Reports: Impaired Vision Cardiovascular History: Reports: None Respiratory History: Reports: None Gastrointestinal History: Reports: GERD 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: Oncologic (Cancer) History: Reports: None Other Dermatologic History: pups syndrome during - SUBSTANCE USE Tobacco Use Status *Q: Never Tobacco User Tobacco Use Within Last Twelve Months: No Second Hand Smoke Exposure: No Days Per Week of Alcohol Use: 0 Recreational Drug Use History: No - HOME MEDS Home Medications: Home Meds No122/Iron/Folic Acid [ Multi Tablet] 1 each PO DAILY 03/31/21 [History] - CURRENT (IN HOUSE) MEDS Current Meds: Current Medications Acetaminophen (Acetaminophen 325 Mg Tab) 650 mg PO Q4H PRN PRN Reason: Pain (Mild 1-3) and fever Diphenhydramine HCl (Diphenhydramine 50 Mg/Ml Sdv) 25 mg IVPUSH Q6H PRN PRN Reason: pruritis Ephedrine Sulfate (Ephedrine 50 Mg/Ml Sdv) 5 mg IVPUSH ASDIRECTED PRN PRN Reason: Hypotension Fentanyl (Fentanyl 100 Mcg/2 Ml Sdv) 100 mcg EPIDUR Q3H PRN PRN Reason: Pain Last Admin: 03/31/21 01:06 Dose: 100 mcg Documented by: Fentanyl/Bupivacaine HCl (Bupivacaine/Fentanyl/Ns 100 Ml Bag) 100 ml EPIDUR ASDIRECTED PRN PRN Reason: Pain Last Admin: 03/31/21 01:06 Dose: 100 ml Documented by: Lactated Ringer's (Ringers, Lactated) 1,000 mls @ 100 mls/hr IV ASDIRECTED MAIA Last Admin: 03/31/21 00:50 Dose: 999 mls/hr Documented by: Oxytocin/Lactated Ringer's (Pitocin In Lr 10 Units/1,000 Ml) 10 unit in 1,000 mls @ 100 mls/hr IV .CONTINUOUS MAIA Oxytocin/Lactated Ringer's (Pitocin In Lr 10 Units/1,000 Ml) 10 unit in 1,000 mls @ 500 mls/hr IV .CONTINUOUS MAIA Nalbuphine HCl (Nalbuphine 10 Mg/1 Ml Vial) 10 mg IVPUSH Q2H PRN PRN Reason: Pain Ondansetron HCl (Ondansetron 4 Mg/2 Ml Sdv) 4 mg IVPUSH Q4H PRN PRN Reason: Nausea/Vomiting Last Admin: 03/31/21 01:09 Dose: 4 mg Documented by: Sodium Chloride (Sodium Chloride 0.9% 10 Ml Syringe) 10 ml FLUSH ASDIRECTED PRN PRN Reason: Keep Vein Open
--- NOTE | 2021-03-31 04:02 | PCM.LDHP ---
L&D History of Present Illness - General Date of Service: 03/31/21 Admit Problem/Dx: Patient Status Order with Admit Dx/Problem 03/31/21 00:27 Patient Status [ADT] Routine 03/31/21 00:40 Patient Status [ADT] Routine Admission Diagnosis/Problem Admission Diagnosis/Problem Vaginal delivery Source of Information: Patient History Limitations: Reports: No Limitations - History of Present Illness Introduction:: Kendy Gerard is a 30-year-old now -0-0-3 female status post who had presented to labor and delivery after she had spontaneous rupture membranes at home at around 11 PM on 1620. She states that she had gone to the bathroom and had thought that her water had broken and then had another gush of clear fluid. She started to have contractions at around 11:20 PM. She denied any bleeding. She reported good movement. She denied any complications with this . Timing/Duration: Reports: sudden onset (with gush of clear fluid at around 11 PM on 03/30/2021), intermittent (Contractions that started after her rupture of membranes) Location, : Reports: Lower back, Pelvic Quality: Reports: Pressure, Throbbing Severity: Severe Pain Score: 8 Associated Symptoms: Reports: vaginal fluid, moderate amount. Denies: vaginal bleeding, vaginal discharge Present Illness Comments:: Kendy Gerard is a 30-year-old now -0-0-3 female status post . Patient had routine care with Dr. Murray starting at 10 weeks gestational age. Her has been overall uncomplicated. She declined Tdap and flu vaccine. Her has been uncomplicated INTERNAL REVIEW AND AUDIT COMPLIANCE history -0-0-3 G1: 12/31/2014, , 40 weeks 2 days, 8 pounds 8 ounces, male , epidural for anesthesia, no complications G2: 10/03/2017, , 40 weeks 5 days, 8 pounds 6 ounces, female infant, epidural for anesthesia, no complications G3: Current labs Blood type: A+ Antibody screen: Negative First trimester hematocrit/hemoglobin: 40.2%/14.0 on 09/10/2020 Platelets: 294 on 09/10/2020 Urine culture: Mixed boo suggestive of contamination Rubella status: Immune Hepatitis B surface antigen: Negative RPR: Negative Hepatitis C: Negative HIV: Negative Gonorrhea: Negative Chlamydia: Negative One hour glucose tolerance test: 92 Second trimester hematocrit/hemoglobin: 36.1%/12.0 on 01/15/2021 Platelets: 269 on 01/15/2021 GBS status: Negative - Related Data Allergies/Adverse Reactions: Allergies Allergy/AdvReac Type Severity Reaction Status Date / Time No Known Allergies Allergy Verified 03/31/21 00:58 Home Medications: Home Meds No122/Iron/Folic Acid [ Multi Tablet] 1 each PO DAILY 03/31/21 [History] Past Medical History - Past Health History Medical/Surgical History: Denies Medical/Surgical History HEENT History: Reports: Impaired Vision Cardiovascular History: Reports: None Respiratory History: Reports: None Gastrointestinal History: Reports: GERD INTERNAL REVIEW AND AUDIT COMPLIANCE History: Reports: : 3 Para: 3 Endocrine/Metabolic History: Reports: Obesity/BMI 30+ Oncologic (Cancer) History: Reports: None Other Dermatologic History: pups syndrome during - Infectious Disease History Infectious Disease History: Reports: Chicken Pox - Past Surgical History HEENT Surgical History: Reports: Oral Surgery Social & Family History - Family History Family Medical History: No Pertinent Family History - Tobacco Use Tobacco Use Status *Q: Never Tobacco User Second Hand Smoke Exposure: No - Tobacco Core Measures Tobacco Use/Smoking Within Last 30 Days: No Smokeless Tobacco Use in Last 30 Days: No - Caffeine Use Caffeine Use: Reports: Coffee - Alcohol Use Days Per Week of Alcohol Use: 0 - Recreational Drug Use Recreational Drug Use: No - Living Situation & Occupation Living situation: Reports: , with Spouse, with Family H&P Review of Systems - Review of Systems: Review Of Systems: See Below General: Denies: Fever, Chills, Malaise, Fatigue HEENT: Reports: Glasses. Denies: Headaches, Rhinitis, Post Nasal Drip, Sinus Congestion, Sore Throat, Visual Changes Pulmonary: Denies: Shortness of Breath, Wheezing, Pleuritic Chest Pain, Cough Cardiovascular: Denies: Chest Pain, Palpitations, Dyspnea on Exertion Gastrointestinal: Reports: Diarrhea (During the day of 03/30/2021). Denies: Abdominal Pain, Constipation, Nausea, Vomiting Genitourinary: Denies: Dysuria, Frequency, Burning, Pain, Urgency Skin: Denies: Rash, Lesions Psychiatric: Denies: Depression, Anxiety L&D Exam - Exam Exam: See Below - Vital Signs Vital Signs: Last Vital Signs Temp 36.7 C 03/31/21 00:40 Pulse 99 03/31/21 00:40 Resp 18 03/31/21 00:40 BP 140/85 03/31/21 00:40 Pulse Ox 96 03/31/21 00:40 Weight: 90.356 kg - OB Specific Contraction Duration (sec): 60-75 Contraction Frequency (min): 2-3 Contraction Intensity: Strong Movement: Active Heart Tones: Present Heart Tones per Min: 145 (+15 x 15 accelerations, no decelerations) Heart Rate (FHR) Variability: Moderate (6-25 bpm) Presentation: Right Occiput Anterior (SHAYAN) - Dale Score Dale Score Cervix Position: Anterior Dale Score Consistency: Soft Dale Score Effacement: >80% (100%) Dale Score Dilation: > 5 cm (10 cm) Dale Score Infant's Station: +1, +2 (+2) Dale Score Total: 13 - Exam General: Alert, Oriented HEENT: Conjunctiva Clear, EOMI Neck: Supple, Trachea Midline Lungs: Normal Respiratory Effort Cardiovascular: Regular Rate GI/Abdominal Exam: Soft, Non-Tender, No Distention, Other (Gravid). No: Guardi ng, Rigid, Rebound Genitourinary: Normal external exam Extremities: Normal Inspection, No Pedal Edema Skin: Warm, Dry, Intact Psychiatric: Alert, Normal Affect, Normal Mood - Patient Data Lab Results Last 24 hrs: Laboratory Results - last 24 hr 03/31/21 03/31/21 03/31/21 Range/Units 00:40 00:50 00:50 WBC 11.47 H (3.98-10.04) K/mm3 RBC 4.11 (3.98-5.22) M/mm3 Hgb 11.1 L (11.2-15.7) gm/dl Hct 35.0 (34.1-44.9) % MCV 85.2 (79.4-94.8) fl MCH 27.0 (25.6-32.2) pg MCHC 31.7 L (32.2-35.5) g/dl RDW Std Deviation 44.5 (36.4-46.3) fL Plt Count 207 (182-369) K/mm3 MPV 12.0 (9.4-12.3) fl Neut % (Auto) 66.7 (34.0-71.1) % Lymph % (Auto) 21.4 (19.3-51.7) % [place] % (Auto) 8.3 (4.7-12.5) % Eos % (Auto) 1.3 (0.7-5.8) Baso % (Auto) 0.3 (0.1-1.2) % Neut # (Auto) 7.65 H (1.56-6.13) K/mm3 Lymph # (Auto) 2.46 (1.18-3.74) K/mm3 [place] # (Auto) 0.95 H (0.24-0.36) K/mm3 Eos # (Auto) 0.15 (0.04-0.36) K/mm3 Baso # (Auto) 0.03 (0.01-0.08) K/mm3 SARS-CoV-2 RNA (LEA) Negative (NEGATIVE) Blood Type A POSITIVE Result Diagrams: 03/31/21 00:50 - Problem List (1) 38 weeks gestation of SNOMED Code(s): 97340889 ICD Code: Z3A.38 - 38 WEEKS GESTATION OF Status: Acute Current Visit: Yes (2) First degree perineal laceration during delivery, delivered SNOMED Code(s): 120622636, 407833220 ICD Code: O70.0 - FIRST DEGREE PERINEAL LACERATION DURING DELIVERY Status: Acute Current Visit: No (3) Vaginal delivery SNOMED Code(s): 344043885 ICD Code: O80 - ENCOUNTER FOR FULL-TERM UNCOMPLICATED DELIVERY Status: Acute Current Visit: No Problem List Initiated/Reviewed/Updated: Yes Orders Last 24hrs: Active Orders 24 hr Category Date Time Status Patient Status Manage Transfer [TRANSFER] Routine ADT 03/31/21 03:49 Ordered Patient Status [ADT] Routine ADT 03/31/21 00:40 Active Activity as Tolerated [RC] PFP Care 03/31/21 00:40 Active Communication Order [RC] ASDIRECTED Care 03/31/21 00:40 Active Notify Provider [RC] ASDIRECTED Care 03/31/21 00:59 Active Notify Provider [RC] PFP Care 03/31/21 00:40 Active Notify Provider [RC] PRN Care 03/31/21 00:40 Active Peripheral IV Care [RC] Q4HR Care 03/31/21 00:40 Active Pump Management, Intrathecal [RC] ASDIRECTED Care 03/31/21 00:41 Active Up ad Katerine [RC] ASDIRECTED Care 03/31/21 00:27 Active Urinary Catheter Assessment [RC] ASDIRECTED Care 03/31/21 00:40 Active Regular Diet [DIET] Diet 03/31/21 Breakfast Active RAPID PLASMA REAGIN,RPR [CHEM] Routine Lab 03/31/21 00:50 Received TYPE AND SCREEN [BBK] Stat Lab 03/31/21 00:50 Results Acetaminophen [TylenoL] Med 03/31/21 00:40 Active 650 mg PO Q4H PRN Bupivacaine/fentaNYL/NS [fentaNYL/Bupivacaine/NS 2 MCG- Med 03/31/21 00:59 Active 0.125% 100 ML] 100 ml EPIDUR ASDIRECTED PRN Lactated Ringers [Ringers, Lactated] 1,000 ml Med 03/31/21 00:45 Active IV ASDIRECTED Nalbuphine [Nubain] Med 03/31/21 00:40 Active 10 mg IVPUSH Q2H PRN Ondansetron [Zofran] Med 03/31/21 00:40 Active 4 mg IVPUSH Q4H PRN Oxytocin/Lactated Ringers [Pitocin in LR 10 Units/1,000 Med 03/31/21 00:45 Active ML] 10 unit in 1,000 ml IV .CONTINUOUS Oxytocin/Lactated Ringers [Pitocin in LR 10 Units/1,000 Med 03/31/21 00:45 Active ML] 10 unit in 1,000 ml IV .CONTINUOUS Sodium Chloride 0.9% [Saline Flush] Med 03/31/21 00:40 Active 10 ml FLUSH ASDIRECTED PRN diphenhydrAMINE [Benadryl] Med 03/31/21 00:59 Active 25 mg IVPUSH Q6H PRN ePHEDrine [ePHEDrine sulfate] Med 03/31/21 00:59 Active 5 mg IVPUSH ASDIRECTED PRN fentaNYL [Sublimaze] Med 03/31/21 00:59 Active 100 mcg EPIDUR Q3H PRN Electronic Heart Tones Ext w TOCO [WOMSER] Oth 03/31/21 00:40 Ordered Routine Electronic Heart Tones Internal [WOMSER] Per Unit Oth 03/31/21 00:40 Ordered Routine Peripheral IV Insertion Adult [OM.PC] Routine Oth 03/31/21 00:40 Ordered Resuscitation Status Routine Resus Stat 03/31/21 00:27 Ordered Medication Orders Acetaminophen (Acetaminophen 325 Mg Tab) 650 mg PO Q4H PRN PRN Reason: Pain (Mild 1-3) and fever Diphenhydramine HCl (Diphenhydramine 50 Mg/Ml Sdv) 25 mg IVPUSH Q6H PRN PRN Reason: pruritis Ephedrine Sulfate (Ephedrine 50 Mg/Ml Sdv) 5 mg IVPUSH ASDIRECTED PRN PRN Reason: Hypotension Fentanyl (Fentanyl 100 Mcg/2 Ml Sdv) 100 mcg EPIDUR Q3H PRN PRN Reason: Pain Last Admin: 03/31/21 01:06 Dose: 100 mcg Documented by: JAM Fentanyl/Bupivacaine HCl (Bupivacaine/Fentanyl/Ns 100 Ml Bag) 100 ml EPIDUR ASDIRECTED PRN PRN Reason: Pain Last Admin: 03/31/21 01:06 Dose: 100 ml Documented by: JAM Lactated Ringer's (Ringers, Lactated) 1,000 mls @ 100 mls/hr IV ASDIRECTED MAIA Last Admin: 03/31/21 02:23 Dose: 100 mls/hr Documented by: Infusion: 03/31/21 02:23 Dose: 999 mls/hr Documented by: Admin: 03/31/21 01:30 Dose: 999 mls/hr Documented by: Infusion: 03/31/21 01:30 Dose: 999 mls/hr Documented by: Admin: 03/31/21 00:50 Dose: 999 mls/hr Documented by: JAM Oxytocin/Lactated Ringer's (Pitocin In Lr 10 Units/1,000 Ml) 10 unit in 1,000 mls @ 100 mls/hr IV .CONTINUOUS MAIA Oxytocin/Lactated Ringer's (Pitocin In Lr 10 Units/1,000 Ml) 10 unit in 1,000 mls @ 500 mls/hr IV .CONTINUOUS MAIA Last Admin: 03/31/21 03:21 Dose: 500 mls/hr Documented by: JAM Nalbuphine HCl (Nalbuphine 10 Mg/1 Ml Vial) 10 mg IVPUSH Q2H PRN PRN Reason: Pain Ondansetron HCl (Ondansetron 4 Mg/2 Ml Sdv) 4 mg IVPUSH Q4H PRN PRN Reason: Nausea/Vomiting Last Admin: 03/31/21 01:09 Dose: 4 mg Documented by: JAM Sodium Chloride (Sodium Chloride 0.9% 10 Ml Syringe) 10 ml FLUSH ASDIRECTED PRN PRN Reason: Keep Vein Open Assessment/Plan Comment:: Kendy Gerard is a 30-year-old now -0-0-3 female status post , PPD #0, uncomplicated Admit to inpatient following normal spontaneous vaginal delivery Continue Pitocin per unit protocol following delivery of placenta and lactated Ringer's until tolerating regular diet Regular diet Vitals per unit routine Ibuprofen and Tylenol for pain control Assist with breast-feeding as needed Continue to monitor lochia Anticipate discharge home on day #1 H&P note written after delivery of infant with information obtained prior to delivery while patient was pushing Sivakumar Navas MD 4:07 AM 03/31/2021
--- NOTE | 2021-03-31 04:13 | PCM.DEL ---
L & D Note - General Info Date of Service: 03/31/21 Mother's Due Date: 04/08/21 - Delivery Note Labor: Spontaneous Delivery Outcome: Livebirth Infant Delivery Method: Spontaneous Vaginal Delivery-Single Presentation: Right Occiput Anterior (SHAYAN) Nuchal Cord: Present (Unable to be reduced due to fast delivery of the shoulder) Anesthesia Type: Epidural Amniotic Fluid Description: Clear Episiotomy Type: None Laceration: 1st Degree (Right perineal with repair with 3-0 Vicryl) Suture type: Vicryl Suture size: 3-0 Placenta: Intact, Spontaneous Cord: 3 Vessels Estimated Blood Loss: 100 Resuscitation Needed: No [place]: Bulb Syringe, Stimulated, Warmed, [place] Used Score 1 min: 8 Score 5 min: 9 Second Stage Interventions: Reports: Pushing Effectively, Pushing, Stirrups/Leg Supports Delivery Comments (Free Text/Narrative):: Stage I: Kendy Gerard was admitted for spontaneous rupture membranes with clear fluid. On admission her cervix was dilated to 5 cm. She was GBS negative. She was given an epidural for anesthesia. She progressed to complete and pushing. Stage II: On 03/31/2021 she had a normal vaginal delivery of a live male at 03:21. Apgars of 8 & 9. Weight and length were unavailable at time of delivery. There was a single nuchal cord that was loose around the neck and unable to be delivered due to rapid delivery of the shoulders. Infant was delivered in SHAYAN position. The cord was doubly clamped and cut by grandmother of the after approximately 60 seconds of life. was placed on mother's abdomen. Stage III: She had a spontaneous delivery of an intact placenta in [place] presentation. Three vessel cord. She was given pitocin and fundal massage. She had a first-degree right perineal laceration that was repaired with 3-0 Vicryl. Mom and baby were stable to recovery. EBL of 100 mL. Sivakumar Navas MD 4:13 AM 03/31/2021 - General Info Date of Service: 03/31/21 - Patient Data Vitals - Most Recent: Last Vital Signs Temp 36.7 C 03/31/21 00:40 Pulse 99 03/31/21 00:40 Resp 18 03/31/21 00:40 BP 140/85 03/31/21 00:40 Pulse Ox 96 03/31/21 00:40 Weight - Most Recent: 90.356 kg I&O - Last 24 Hours: Intake & Output 03/30/21 03/30/21 03/31/21 14:59 22:59 06:59 Intake Total 3200 Output Total 250 Balance 2950 Lab Results Last 24 Hours: Laboratory Results - last 24 hr 03/31/21 03/31/21 03/31/21 Range/Units 00:40 00:50 00:50 WBC 11.47 H (3.98-10.04) K/mm3 RBC 4.11 (3.98-5.22) M/mm3 Hgb 11.1 L (11.2-15.7) gm/dl Hct 35.0 (34.1-44.9) % MCV 85.2 (79.4-94.8) fl MCH 27.0 (25.6-32.2) pg MCHC 31.7 L (32.2-35.5) g/dl RDW Std Deviation 44.5 (36.4-46.3) fL Plt Count 207 (182-369) K/mm3 MPV 12.0 (9.4-12.3) fl Neut % (Auto) 66.7 (34.0-71.1) % Lymph % (Auto) 21.4 (19.3-51.7) % [place] % (Auto) 8.3 (4.7-12.5) % Eos % (Auto) 1.3 (0.7-5.8) Baso % (Auto) 0.3 (0.1-1.2) % Neut # (Auto) 7.65 H (1.56-6.13) K/mm3 Lymph # (Auto) 2.46 (1.18-3.74) K/mm3 [place] # (Auto) 0.95 H (0.24-0.36) K/mm3 Eos # (Auto) 0.15 (0.04-0.36) K/mm3 Baso # (Auto) 0.03 (0.01-0.08) K/mm3 SARS-CoV-2 RNA (LEA) Negative (NEGATIVE) Blood Type A POSITIVE Med Orders - Current: Current Medications Acetaminophen (Acetaminophen 325 Mg Tab) 650 mg PO Q4H PRN PRN Reason: Pain (Mild 1-3) and fever Diphenhydramine HCl (Diphenhydramine 50 Mg/Ml Sdv) 25 mg IVPUSH Q6H PRN PRN Reason: pruritis Ephedrine Sulfate (Ephedrine 50 Mg/Ml Sdv) 5 mg IVPUSH ASDIRECTED PRN PRN Reason: Hypotension Fentanyl (Fentanyl 100 Mcg/2 Ml Sdv) 100 mcg EPIDUR Q3H PRN PRN Reason: Pain Last Admin: 03/31/21 01:06 Dose: 100 mcg Documented by: Fentanyl/Bupivacaine HCl (Bupivacaine/Fentanyl/Ns 100 Ml Bag) 100 ml EPIDUR ASDIRECTED PRN PRN Reason: Pain Last Admin: 03/31/21 01:06 Dose: 100 ml Documented by: Lactated Ringer's (Ringers, Lactated) 1,000 mls @ 100 mls/hr IV ASDIRECTED MAIA Last Admin: 03/31/21 02:23 Dose: 100 mls/hr Documented by: Oxytocin/Lactated Ringer's (Pitocin In Lr 10 Units/1,000 Ml) 10 unit in 1,000 mls @ 100 mls/hr IV .CONTINUOUS MAIA Oxytocin/Lactated Ringer's (Pitocin In Lr 10 Units/1,000 Ml) 10 unit in 1,000 mls @ 500 mls/hr IV .CONTINUOUS MAIA Last Admin: 03/31/21 03:21 Dose: 500 mls/hr Documented by: Nalbuphine HCl (Nalbuphine 10 Mg/1 Ml Vial) 10 mg IVPUSH Q2H PRN PRN Reason: Pain Ondansetron HCl (Ondansetron 4 Mg/2 Ml Sdv) 4 mg IVPUSH Q4H PRN PRN Reason: Nausea/Vomiting Last Admin: 03/31/21 01:09 Dose: 4 mg Documented by: Sodium Chloride (Sodium Chloride 0.9% 10 Ml Syringe) 10 ml FLUSH ASDIRECTED PRN PRN Reason: Keep Vein Open - Exam Urinary Catheter Total Time: 0Days 0Hours - Problem List & Annotations (1) 38 weeks gestation of SNOMED Code(s): 93360838 Code(s): Z3A.38 - 38 WEEKS GESTATION OF Status: Acute Current Visit: Yes (2) First degree perineal laceration during delivery, delivered SNOMED Code(s): 385374249, 513820774 Code(s): O70.0 - FIRST DEGREE PERINEAL LACERATION DURING DELIVERY Status: Acute Current Visit: No (3) Vaginal delivery SNOMED Code(s): 603945169 Code(s): O80 - ENCOUNTER FOR FULL-TERM UNCOMPLICATED DELIVERY Status: Acute Current Visit: No - Problem List Review Problem List Initiated/Reviewed/Updated: Yes - My Orders Last 24 Hours: My Active Orders 03/31/21 00:27 Up ad Katerine [RC] ASDIRECTED Resuscitation Status Routine 03/31/21 00:40 Patient Status [ADT] Routine Activity as Tolerated [RC] PFP Communication Order [RC] ASDIRECTED Notify Provider [RC] PFP Notify Provider [RC] PRN Peripheral IV Care [RC] Q4HR Urinary Catheter Assessment [RC] ASDIRECTED Acetaminophen [TylenoL] 650 mg PO Q4H PRN Nalbuphine [Nubain] 10 mg IVPUSH Q2H PRN Ondansetron [Zofran] 4 mg IVPUSH Q4H PRN Sodium Chloride 0.9% [Saline Flush] 10 ml FLUSH ASDIRECTED PRN Electronic Heart Tones Ext w TOCO [WOMSER] Routine Electronic Heart Tones Internal [WOMSER] Per Unit Routine Peripheral IV Insertion Adult [OM.PC] Routine 03/31/21 00:41 Pump Management, Intrathecal [RC] ASDIRECTED 03/31/21 00:45 Lactated Ringers [Ringers, Lactated] 1,000 ml IV ASDIRECTED Oxytocin/Lactated Ringers [Pitocin in LR 10 Units/1,000 ML] 10 unit in 1,000 ml IV .CONTINUOUS Oxytocin/Lactated Ringers [Pitocin in LR 10 Units/1,000 ML] 10 unit in 1,000 ml IV .CONTINUOUS 03/31/21 00:50 RAPID PLASMA REAGIN,RPR [CHEM] Routine TYPE AND SCREEN [BBK] Stat 03/31/21 03:49 Patient Status Manage Transfer [TRANSFER] Routine 03/31/21 Breakfast Regular Diet [DIET] - Plan Plan:: Kendy Gerard is a 30-year-old now -0-0-3 female status post , PPD #0, uncomplicated Admit to inpatient following normal spontaneous vaginal delivery Continue Pitocin per unit protocol following delivery of placenta and lactated Ringer's until tolerating regular diet Regular diet Vitals per unit routine Ibuprofen and Tylenol for pain control Assist with breast-feeding as needed Continue to monitor lochia Anticipate discharge home on day #1 Sivakumar Navas MD 4:13 AM 03/31/2021
[2021-03-31] MEDS ORDERED: Benzocaine/Menthol 20%-0.5% Spray 78 GM Cannister TOP PRN (05:26)
[2021-03-31] MEDS ORDERED: Witch Hazel Medicated Pads 40/Jar TOP PRN (05:26)
[2021-03-31] MEDS ORDERED: Docusate Sodium 100 MG Cap PO PRN (05:26)
[2021-03-31] MEDS ORDERED: Hydrocortisone Acetate 25 MG Supp RECTAL PRN (05:26)
[2021-03-31] MEDS ORDERED: Magnesium Hydroxide 400 MG/5 ML Susp 30 ML Cup PO PRN (05:26)
[2021-03-31] MEDS: Ibuprofen 600 MG Tab PO PRN ×2 (05:47→12:35)
[2021-03-31] MEDS: Prenatal Multivitamin with Calcium/Folic Acid/Iron Tab PO SCH (12:41)
[2021-03-31] MEDS ORDERED: Bupivacaine 0.25% 10 ML SDV ONE (15:00)
--- NOTE | 2021-03-31 19:56 | PCM48HPAN ---
Post Anesthesia Note - EVALUATION WITHIN 48HRS OF ANESTHETIC Vital Signs in Normal Range: Yes Patient Participated in Evaluation: Yes Respiratory Function Stable: Yes Airway Patent: Yes Cardiovascular Function Stable: Yes Hydration Status Stable: Yes Pain Control Satisfactory: Yes Nausea and Vomiting Control Satisfactory: Yes Mental Status Recovered: Yes Vital Signs: Last Vital Signs Temp 98.2 F 03/31/21 19:30 Pulse 95 03/31/21 19:30 Resp 16 03/31/21 19:30 BP 99/63 03/31/21 19:30 Pulse Ox 98 03/31/21 19:30 - COMMENTS/OBSERVATIONS Free Text/Narrative:: Laying in bed. Pleased with epidural and delivery.
--- NOTE | 2021-04-01 09:18 | PCM.SN.2 ---
- Free Text/Narrative Note: Stage I: Kendy Gerard was admitted for spontaneous rupture membranes with clear fluid. On admission her cervix was dilated to 5 cm. She was GBS negative. She was given an epidural for anesthesia. She progressed to complete and pushing. Stage II: On 03/31/2021 she had a normal vaginal delivery of a live male at 03:21. Apgars of 8 & 9. Weight and length were unavailable at time of delivery. There was a single nuchal cord that was loose around the neck and unable to be delivered due to rapid delivery of the shoulders. was delivered in SHAYAN position. The cord was doubly clamped and cut by grandmother of the infant after approximately 60 seconds of life. was placed on mother's abdomen. Stage III: She had a spontaneous delivery of an intact placenta in Roselyn presentation. Three vessel cord. She was given pitocin and fundal massage. She had a first-degree right perineal laceration that was repaired with 3-0 Vicryl. Mom and baby were stable to recovery. EBL of 100 mL. patient is done well. She is nursing without problems. Minimal lochia is noted. She is afebrile vital signs stable. She is desiring discharge home. Condition: Good Time Documentation
--- NOTE | 2021-04-01 09:22 | PCM.DCSUM1 ---
Discharge Summary - Hospital Course Free Text/Narrative:: Stage I: Kendy Gerard was admitted for spontaneous rupture membranes with clear fluid. On admission her cervix was dilated to 5 cm. She was GBS negative. She was given an epidural for anesthesia. She progressed to complete and pushing. Stage II: On 03/31/2021 she had a normal vaginal delivery of a live male at 03:21. Apgars of 8 & 9. Weight and length were unavailable at time of delivery. There was a single nuchal cord that was loose around the neck and unable to be delivered due to rapid delivery of the shoulders. Infant was delivered in SHAYAN position. The cord was doubly clamped and cut by grandmother of the infant after approximately 60 seconds of life. Infant was placed on mother's abdomen. Stage III: She had a spontaneous delivery of an intact placenta in Roselyn presentation. Three vessel cord. She was given pitocin and fundal massage. She had a first-degree right perineal laceration that was repaired with 3-0 Vicryl. Mom and baby were stable to recovery. EBL of 100 mL. patient is done well. She is nursing without problems. Minimal lochia is noted. She is afebrile vital signs stable. She is desiring discharge home. Condition: Good Diagnosis: Stroke: No - Discharge Data Discharge Date: 04/01/21 Discharge Disposition: Home, Self-Care 01 Condition: Good - Referral to Home Health Primary Care Physician: Zoraida Murray MD - Discharge Diagnosis/Problem(s) (1) 38 weeks gestation of SNOMED Code(s): 08879879 ICD Code: Z3A.38 - 38 WEEKS GESTATION OF Status: Acute Current Visit: Yes (2) First degree perineal laceration during delivery, delivered SNOMED Code(s): 250127733, [id number] ICD Code: O70.0 - FIRST DEGREE PERINEAL LACERATION DURING DELIVERY Status: Acute Current Visit: No - Patient Instructions Diet: Usual Diet as Tolerated (Nursing diet with increased calories and calcium as recommended) Activity: As Tolerated (No intercourse or tampons until bleeding resolves) Driving: May Drive Today Showering/Bathing: May Shower (May take a bath) Notify Provider of: Fever, Increased Pain, Swelling and Redness, Drainage - Discharge Plan Home Medications: Home Meds No122/Iron/Folic Acid [ Multi Tablet] 1 each PO DAILY 03/31/21 [History] Acetaminophen [Tylenol] 650 mg PO Q6H PRN tablet 04/01/21 [Rx] Ibuprofen [Motrin] 600 mg PO Q6H PRN tablet 04/01/21 [Rx] Referrals: Zoraida Murray MD [Primary Care Provider] - (Return to [facility] weeks as scheduled.) - Discharge Summary/Plan Comment DC Time >30 min.: No Total # of Minutes for Discharge Time: 10 Discharge Summary/Plan Comment: Discharge instructions: 1. Discharge home 2. Diet, activity and follow-up discussed with patient. Recommend nursing diet with increased calories and calcium. 3. Precautions given concern increased pain, bleeding, temperature, signs/symptoms of DVT/PE. 4. Medications per home medication was printed, discussed with and given to the patient. 5. Return to clinic-Dr. Murray, [facility] in 3 weeks. Diagnosis: Term -delivered Condition: Good - Patient Data Vitals - Most Recent: Last Vital Signs Temp 36.7 C 04/01/21 03:23 Pulse 68 04/01/21 03:23 Resp 12 04/01/21 03:23 BP 114/77 04/01/21 03:23 Pulse Ox 96 04/01/21 03:23 Weight - Most Recent: 90.356 kg I&O - Last 24 hours: Intake & Output 03/31/21 04/01/21 04/01/21 22:59 06:59 14:59 Intake Total 120 Balance 120 Lab Results - Last 24 hrs: Laboratory Results - last 24 hr 03/31/21 Range/Units 00:50 RPR Non-reactive (NONREACTIVE) Med Orders - Current: Current Medications Acetaminophen (Acetaminophen 325 Mg Tab) 650 mg PO Q6H PRN PRN Reason: mild pain or fever Benzocaine/Menthol (Benzocaine/Menthol 20%-0.5% [place] 78 Gm Cannister) 0 gm TOP ASDIRECTED PRN PRN Reason: Perineal Comfort Measure Last Admin: 03/31/21 05:48 Dose: 1 can Documented by: Docusate Sodium (Docusate Sodium 100 Mg Cap) 100 mg PO BID PRN PRN Reason: Constipation Hydrocortisone Acetate (Hydrocortisone Acetate 25 Mg Supp) 25 mg RECTAL BID PRN PRN Reason: Hemorrhoid pain Oxytocin/Lactated Ringer's (Pitocin In Lr 10 Units/1,000 Ml) 10 unit in 1,000 mls @ 100 mls/hr IV TITRATE MAIA; Protocol Ibuprofen (Ibuprofen 600 Mg Tab) 600 mg PO Q6H PRN PRN Reason: Mild pain or fever Last Admin: 03/31/21 12:35 Dose: 600 mg Documented by: Magnesium Hydroxide (Magnesium Hydroxide 400 Mg/5 Ml Susp 30 Ml Cup) 30 ml PO BEDTIME PRN PRN Reason: Constipation Prenat Multivit/[employer]/Iron/Folic Ac ( Multivitamin With Calcium/Folic Acid/Iron Tab) 1 each PO DAILY MAIA Last Admin: 03/31/21 12:41 Dose: 1 each Documented by: Miranda Bryan (Miranda Bryan Medicated Pads 40/Jar) 1 pad TOP ASDIRECTED PRN PRN Reason: Perineal Comfort Measure Last Admin: 03/31/21 05:48 Dose: 1 tub Documented by: Discontinued Medications Acetaminophen (Acetaminophen 325 Mg Tab) 650 mg PO Q4H PRN PRN Reason: Pain (Mild 1-3) and fever Bupivacaine HCl (Bupivacaine 0.25% 10 Ml Sdv) 10 ml .ROUTE .STK-MED ONE Stop: 03/31/21 15:01 Diphenhydramine HCl (Diphenhydramine 50 Mg/Ml Sdv) 25 mg IVPUSH Q6H PRN PRN Reason: pruritis Ephedrine Sulfate (Ephedrine 50 Mg/Ml Sdv) 5 mg IVPUSH ASDIRECTED PRN PRN Reason: Hypotension Fentanyl (Fentanyl 100 Mcg/2 Ml Sdv) 100 mcg EPIDUR Q3H PRN PRN Reason: Pain Last Admin: 03/31/21 01:06 Dose: 100 mcg Documented by: Fentanyl/Bupivacaine HCl (Bupivacaine/Fentanyl/Ns 100 Ml Bag) 100 ml EPIDUR ASDIRECTED PRN PRN Reason: Pain Last Admin: 03/31/21 01:06 Dose: 100 ml Documented by: Lactated Ringer's (Ringers, Lactated) 1,000 mls @ 100 mls/hr IV ASDIRECTED MAIA Last Admin: 03/31/21 02:23 Dose: 100 mls/hr Documented by: Oxytocin/Lactated Ringer's (Pitocin In Lr 10 Units/1,000 Ml) 10 unit in 1,000 mls @ 100 mls/hr IV .CONTINUOUS MAIA Oxytocin/Lactated Ringer's (Pitocin In Lr 10 Units/1,000 Ml) 10 unit in 1,000 mls @ 500 mls/hr IV .CONTINUOUS MAIA Last Admin: 03/31/21 03:21 Dose: 500 mls/hr Documented by: Nalbuphine HCl (Nalbuphine 10 Mg/1 Ml Vial) 10 mg IVPUSH Q2H PRN PRN Reason: Pain Ondansetron HCl (Ondansetron 4 Mg/2 Ml Sdv) 4 mg IVPUSH Q4H PRN PRN Reason: Nausea/Vomiting Last Admin: 03/31/21 01:09 Dose: 4 mg Documented by: Sodium Chloride (Sodium Chloride 0.9% 10 Ml Syringe) 10 ml FLUSH ASDIRECTED PRN PRN Reason: Keep Vein Open
[2021-04-01 10:25] VITALS: BP 118/68; PULSE 72
[2021-04-01] MEDS: Prenatal Multivitamin with Calcium/Folic Acid/Iron Tab PO SCH (10:46)
== END 2021-04-01 10:00 | disposition home or self-care (01) | DRG 560 ==
LOC: JD.OBCHECK 00:16 → JD.OB 00:21 → JD.OBCHECK 00:40 → OBSVTOIN 03:21 → JD.OB 03:22
PROVIDERS: ADMIT Obstetrics & Gynecology; ATTEND Obstetrics & Gynecology
PROC: 10E0XZZ Delivery of Products of Conception, External Approach (ICD-10-PCS; principal; 2021-03-31)
PROC: 0HQ9XZZ Repair Perineum Skin, External Approach (ICD-10-PCS; 2021-03-31)
PROC: 3E0R3BZ Introduction of Anesthetic Agent into Spinal Canal, Percutaneous Approach (ICD-10-PCS; 2021-03-31)
PROC: 00HU33Z Insertion of Infusion Device into Spinal Canal, Percutaneous Approach (ICD-10-PCS; 2021-03-31)
DX: O69.81X0 Labor and delivery complicated by cord around neck, without compression, not applicable or unspecified (principal); O70.0 First degree perineal laceration during delivery; Z37.0 Single live birth; Z3A.38 38 weeks gestation of pregnancy; O99.62 Diseases of the digestive system complicating childbirth; K21.9 Gastro-esophageal reflux disease without esophagitis; Z20.822 Contact with and (suspected) exposure to COVID-19
CPT/HCPCS: 01967; 36415; 51701; 59025; 59409; 85025; 86592; 86850; 86900; 86901; A9270-GY; J2405; J2590; J3010; J3490; J7120; U0002

== ENCOUNTER 2024-05-19 03:36 | Inpatient (IN) | payer BC ==
[~2024-05-19 03:36] MED LIST: Bupivacaine 0.25% 10 ML SDV ONE
[2024-05-19] MEDS ORDERED: Ondansetron 4 MG/2 ML SDV IVPUSH PRN (04:00)
[2024-05-19] MEDS ORDERED: Nalbuphine 10 MG/1 ML Vial IVPUSH PRN (04:00)
[2024-05-19] MEDS ORDERED: Lidocaine 1% 50 ML MDV INJECT PRN (04:00)
[2024-05-19] MEDS: Lactated Ringers 1,000 ML IV SCH (04:06)
[2024-05-19] MEDS ORDERED: diphenhydrAMINE 50 MG/ML SDV IVPUSH PRN (04:17)
[2024-05-19] MEDS ORDERED: ePHEDrine 50 MG/ML SDV IVPUSH PRN (04:17)
[2024-05-19 04:19] LABS: BASOPHILS PERCENT AUTO 0.3 % (0.0-1.0); EOSINOPHILS ABSOLUTE AUTO 0.2 K/mm3 (0.0-0.4); EOSINOPHILS PERCENT AUTO 1.4 % (0.0-6.0); HEMATOCRIT 39.1 % (37.0-47.0); IMMATURE GRAN ABSOLUTE AUTO 0.11 K/mm3 (0.00-0.05); IMMATURE GRAN PERCENT AUTO 0.7 % (0.0-0.4); LYMPHOCYTES PERCENT AUTO 19.8 % (24.0-44.0); MEAN CORPUSCULAR HEMOGLOBIN 29.3 pg (28.0-32.0); MEAN CORPUSCULAR HGB CONC 33.2 g/dl (32.0-36.0); MEAN CORPUSCULAR VOLUME 88.3 fl (83.0-99.0); MEAN PLATELET VOLUME 12.4 fl (9.4-12.3); MONOCYTES ABSOLUTE AUTO 0.9 K/mm3 (0.0-0.8); MONOCYTES PERCENT AUTO 5.8 % (0.0-8.0); NEUTROPHILS ABSOLUTE AUTO 10.9 K/mm3 (1.8-7.7); PLATELET COUNT,PLT 184 K/mm3 (150-400); RED BLOOD CELL COUNT 4.43 M/mm3 (4.10-5.30)
[2024-05-19] MEDS: fentaNYL 100 MCG/2 ML SDV EPIDUR PRN (04:26)
[2024-05-19] MEDS: Bupivacaine/fentaNYL/NS 100 ML Bag EPIDUR PRN (04:27)
[2024-05-19] MEDS: Oxytocin/0.9 % Sodium Chloride 30 UNIT/500 ML BAG IV SCH (06:02)
[2024-05-19] MEDS ORDERED: Docusate Sodium 100 MG Cap PO PRN (07:28)
[2024-05-19] MEDS ORDERED: Acetaminophen 325 MG Tab PO PRN (07:28)
[2024-05-19] MEDS: Witch Hazel Medicated Pads 40/Jar TOP PRN (09:31)
[2024-05-19] MEDS: Benzocaine/Menthol 20%-0.5% Spray 78 GM Cannister TOP PRN (09:31)
[2024-05-19] MEDS: Ibuprofen 600 MG Tab PO SCH (11:29)
[2024-05-20 11:20] VITALS: BP 133/65; PULSE 102
== END 2024-05-20 10:50 | disposition home or self-care (01) | DRG 560 ==
LOC: JD.OBCHECK 03:36 → JD.OB 03:37 → JD.OBCHECK 04:19 → JD.OB 04:20 → OBSVTOIN 06:01 → JD.OB 14:50
PROVIDERS: ADMIT Obstetrics & Gynecology; ATTEND Obstetrics & Gynecology
PROC: 10E0XZZ Delivery of Products of Conception, External Approach (ICD-10-PCS; principal; 2024-05-19)
PROC: 3E0R3BZ Introduction of Anesthetic Agent into Spinal Canal, Percutaneous Approach (ICD-10-PCS; 2024-05-19)
PROC: 00HU33Z Insertion of Infusion Device into Spinal Canal, Percutaneous Approach (ICD-10-PCS; 2024-05-19)
DX: O48.0 Post-term pregnancy (principal); Z37.0 Single live birth; O99.214 Obesity complicating childbirth; Z3A.40 40 weeks gestation of pregnancy; O69.81X0 Labor and delivery complicated by cord around neck, without compression, not applicable or unspecified
CPT/HCPCS: 36415; 59025; 59409; 85025; 86592; 86850; 86900; 86901; A9270-GY; J0665; J3010; J3490; J7120; J7999